=== PATIENT | male | born 1965 | race African-American/Black ===

== ENCOUNTER 2025-01-12 13:26 | Emergency (ER) | payer OTHER, SELFPAY ==
--- NOTE | ~2025-01-12 | XR_ITS ---
HISTORY: right lower leg pain, trip 1 week ago COMPARISON: None TECHNIQUE: 2 views of the tibia and fibula were performed FINDINGS: No acute or subacute fracture. Joint spaces are preserved and alignment is maintained. Soft tissues are unremarkable without foreign body or significant calcification. Age-appropriate mineralization. IMPRESSION: No acute fracture or dislocation Reviewed, dictated and finalized at location A.
--- NOTE | ~2025-01-12 | US_ITS ---
EXAMINATION: US venous doppler LE DATE: 01/12/2025 16:30 INDICATION: Pain in the bilateral lower extremities for weeks with swelling, right greater than lef t. DVT suspected clinically. TECHNIQUE: Grayscale ultrasound images without and with compression and Doppler ultrasound images of the bilateral lower extremity veins were obtained. COMPARISON: None. FINDINGS: The visualized portions of right common femoral vein, profunda (deep) femoral vein, femoral vein, pop liteal vein, peroneal veins, posterior tibial veins, and greater saphenous vein outflow are patent. The visualized portions of left common femoral vein, profunda femoral vein, femoral vein, popliteal v ein, peroneal veins, posterior tibial veins, and greater saphenous vein outflow are patent. Within the soft tissues of the popliteal fossa is a well-circumscribed, anechoic, avascular collectio n with increased through transmission, consistent with a cyst. This focus measures 3.3 x 1.2 x 3.4 cm , corresponding to the region of palpable concern and is most consistent with a right-sided Richards's c yst. IMPRESSION: No deep venous thrombosis. Right-sided Richards's cyst. Reviewed, dictated and finalized at location A.
--- NOTE | ~2025-01-12 | XR_ITS ---
HISTORY: previous paco surgery, increased pain, trip 1 week ago COMPARISON: None TECHNIQUE: 2 views of the left tibia and fibula were performed FINDINGS: No acute or subacute fracture. Fixation hardware within the tibia, consistent with patient's history. Bony remodeling of the mid shaft of the tibia as well as the mid shaft of the mid to distal fibula. No significant soft tissue swelling. Remaining soft tissues tissues are unremarkable without foreign body or significant calcification. Age-appropriate mineralization. IMPRESSION: No acute fracture or dislocation. Reviewed, dictated and finalized at location A.
--- OUTSIDE RECORDS SUMMARY | 2025-01-12 13:30 | XMS_ITS | CONTINUITY OF CARE DOCUMENT ---
Author Name crow maria Address Unknown Organization [facility] Address [address] [address] [place] [address] Phone [phone] Care Team Providers Care Elevator Constructor Helper Name Role Phone Aryan FLOREZ, Samm Unavailable [phone] KRYSTIN BEAR MD Unavailable KRYSTIN BEAR MD Unavailable [phone] INS[employer]ANCE PROVID[employer] Payer name Policy type / Coverage type [place] red green party ID [facility] [id number] Other [id number]
[2025-01-12 13:45] VITALS: BP 180/110; PULSE 70; RESP 16; TEMP 36.8; O2SAT 98
--- OUTSIDE RECORDS SUMMARY | 2025-01-12 14:31 | XMS_ITS | CONTINUITY OF CARE DOCUMENT ---
Author Name crow maria Address Unknown Organization [facility] Address [address] [place] [address] Phone [phone] Care Team Providers Care Telephone Station Installer Name Role Phone Aryan FLOREZ, Samm Unavailable KRYSTIN BEAR MD Unavailable KRYSTIN BEAR MD Unavailable [phone] [employer] Payer name Policy type / Coverage type [place] red green party ID [facility] [id number] Other [id number]
--- OUTSIDE RECORDS SUMMARY | 2025-01-12 14:32 | XMS_ITS | Data Portability ---
Author Organization [place] [facility] [employer], Main Office Address [address] [place] [address] Care Team Providers Care Environmental Associate Name Role Phone PAULINE QUICK Primary Care Provider [phone] PAULINE QUICK Referring Provider Assessment Encounter Date Assessment Date Assessment LastModified by Organization Details LastModified Time 08/04/2023 08/04/2023 HPI: 58-year-old male came in today for evaluation of his right ankle injury. He had injured it about 2 months ago. He was running in the backyard and thinks he may have twisted it. He continues to be sore and painful for him. Most pain is over the lateral aspect ankle. 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 He is constantly moving the right foot up and down when he is at work which causes him increased pain. He does wear safety boots which does give him good support and he is little bit more comfortable when he is wearing these when he is walking. However he is in regular shoes lateral ankle get sore and swollen by the end of the day. After his initial injury he never saw anyone up until this point. Physical exam: 58-year-old male he is 5 ft 10 to 252 lb BMI is 36.2. He has some mild swelling to the lateral ankle. He has [id number] tenderness over the distal tip of lateral malleolus as well as the ATFL. He has some mild swelling over the peroneal tendon. There is some minimal tenderness in this area. There is no snapping or dislocation and I can feel with rotation of the ankle. His Achilles tendon is intact and nontender. No swelling in the foot. He has pes planus with mild overpronation when he is standing. Impression: 58-year-old male has a lateral ankle sprain right ankle. Recommended getting him into an active ankle splint as well as some formal physical therapy. He does have relatively flat feet and might benefit him to get some custom orthotics may as well. Having the or pronation may be contributing to his ankle pain as well. I also discussed with him the vascular disease seen on the x-rays today. He does not smoke is no history of diabetes. He states his father did have significant cardiac problems. I recommend that he talk with his primary care doctor. 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 We will see him back in a month for re-evaluation of the ankle. 30 minutes was spent in treatment patient more than half of this in [id number] conversation [email or web address] Not available 08/04/2023 13:00:00 Plan of Treatment Reminders Order Date Submit Date Provider Last Modified By Organization Details Last Modified Time Details Appointments None recorde d. Lab None recorde d. Referral None recorde d. Procedures None recorde d. Surgeries None recorde d. Imaging XR, ankle 023 08/04/20 [email or web address] [facility], [address] [place] [address], [place], [address], 15:23:43 Medication Orders None recorde d. Patient TargetsNo targets recorded. Patient InstructionsNo instructions recorded. Reason for Referral None Reported. Results Created Date Observation Date Name Description Value Unit Range Abnormal Flag Note LastModifiedBy Organization Detail LastModifiedTime 08/04/20 XR, ankle No observ ation record ed. [email or web address] [facility] [address], [place], [address], 08/04/2023 12:51:50 Result Notes None recorded. Problems Name Problem SNOMED Code Status Onset Date Resolution Date Notes Provider Name and Address Organization Details Recorded Time Pain of right ankle joint 99600426927241233 Active 2022 DANE Bentley null, [facility] [employer] 11:55:47 Sprain of right ankle 60039778170205748 Active 2022 MARILYN Rodriguez, [employer] 13:09:18 Problem Notes None recorded. Procedures Surgical History None recorded. Imaging Results Imaging Date Name Status LastModified by Candi rahman Details LastModified Time 08/04/2023 XR, ankle completed [email or web address] [facility] [address] [facility] [facility], [place], [address], 08/04/2023 12:51:50 Procedure Notes None recorded. Medical Equipment None Reported. Allergies No known drug allergies Medications Name Sig Start Date Stop Date Status Note LastModified by Organization Details LastModified Time losartan 50 mg tablet TAKE ONE TABLET BY MOUTH EVERY DAY FOR BLOOD PRESSURE active Not Available Not Available No t Available Vitals Date Recorded Body height Body mass index (BMI) Body weight Provider Name and Address Organization Details Last Updated DateTime 08/04/2023 177.8 cm 36.2 kg/m2 862616.28 g DANE Bentley [employer] 08/04/2023 12:20:55 Social History Question Answer Notes LastModified by Luis arauz Details LastModified Time Tobacco Smoking Status Never Smoker DANE Bentley [employer] 08/04/2023 12:05:00 What Is Your Level Of Alcohol Consumption? Occasional [email or web address] Information not available 08/04/2023 Sex: Unknown Functional Status None recorded. Mental Status None recorded. Family History Relationship Description Onset Age of this Age Resolved Age Notes LastModified by Organization Details LastModified Time Mother Hypertensive disorder Not available 2022 12:04:52 Medical History No medical history recorded. Past Encounters Encounter ID Performer Location Encounter Start Date Encounter Closed Date Diagnosis/Indication Diagnosis SNOMED-CT Code Diagnosis ICD10 Code Diagnosis Note [id number] SHANNA Muñoz S_[facility] [address] [place] [address] 08/04/2023 11:43:39 08/04/2023 13:20:02 Pain of right ankle joint [id number] 4381918 M25.571 Health Concerns Section Related Observation LastModified by Organization Detai ls LastModified Time None Recorded Concern Status LastModified by Organization Details LastModified Time None Recorded Advance Directives Directive None Recorded Payers Encounter Date Sequence Insurance Name Policy Number Policy Urbina Covered Member ID Urbina Member ID Guarantor Name 08/04/2023 1 [facility] [id number] Hosea Rocha [id number] Hosea Rocha
--- OUTSIDE RECORDS SUMMARY | 2025-01-12 14:32 | XMS_ITS | Data Portability ---
Author Organization NATASHA Lorelei BULLOCK Address [address] [place] [address] Care Team Providers Care Rental Representative Name Role Phone SILVANA QUICK Primary Care Provider Assessment No assessment recorded. Plan of Treatment Reminders Order Date Submit Date Provider Last Modified By Organization Details Last Modified Time Details Appointments None recorded. Lab HbA1c (hemoglob in A1c), blood 2022 023 HOLLY DAY, [address] [place] [address], [address], [place], [address], 10:16:34 PSA, total, serum or plasma 2022 023 HOLLY DAY, [address] [place] [address], [address], [place], [address], 10:16:35 CMP, serum or plasma 2022 023 HOLLY DAY, [address] [place] [address], [address], [place], [address], 06:18:14 CBC 2022 023 HOLLY BERNSTEIN, [address] [place] [address], [address], [place], [address], 06:18:14 lipid panel, serum 2022 023 HOLLY DAY, [address] [place], [place] [address]ot Kd, [address], [place], [address], 3 06:18:13 TSH, ultra-sen sitive, serum 2022 023 HOLLY MATTHEW, [address], [address], [place], [address], 3 10:16:33 HIV 1+2 AB + HIV 1 p24 Ag, qualitati ve immunoass ay, serum 2019 020 HOLLY MATTHEW, [facility] [address], [address], [place], [address], 0 09:13:39 hepatitis C Ab, signal-to -cutoff, serum or plasma 2019 020 HOLLY MONZONISMAEL, [facility], [address], [place], [address], 0 09:13:40 CBC w/ auto diff 2019 020 HOLLY MATTHEW, [facility], [address], [place], [address], 0 09:13:34 urinalysi s, complete 2019 020 HOLLY MONZONISMAEL, [facility], [address], [place], [address], 0 09:13:36 CMP, serum or plasma 2019 020 HOLLY MONZONISMAEL, [facility] [address], [address], [place], [address], 0 09:13:35 lipid panel, serum 2019 020 HOLLY MONZONISMAEL, [facility] [address], [address], [place], [address], 0 09:13:37 HbA1c (hemoglob in A1c), blood 2019 020 [facility], [address] [facility], [address], [place], [address], 0 09:13:38 PSA, total, serum or plasma 2019 020 [facility], [address] [facility], [address], [place], [address], 0 09:13:38 Referral orthopedi c surgeon referral [address] [facility], [address] [facility], [place], [address], 3 13:00:58 ophthalmo logist referral 2022 023 ariana [facility], [address], [place], [address], 4 09:03:33 gastroent erologist referral 2022 023 ariana Hardy MD, [address] [place], [address], 4 09:03:32 Procedures None recorded. Surgeries None recorded. Imaging US, doppler, venous 2020 021 [facility] [address] [place], [address], 1 13:30:06 Medication Orders losartan 50 mg tablet 2022 023 DOU[facility], [address], [place], [id number], 3 15:21:47 losartan 50 mg tablet 2022 023 HOLLY [facility], [address] [place] [address], [id number], 3 16:27:36 Levitra 20 mg tablet 2019 020 [facility], [address] [place] [address], [id number], 3 10:19:56 losartan 100 mg-hydroc hlorothia zide 25 mg tablet 2019 020 [facility], [address] [place] [address], [id number], 3 10:19:54 amlodipin e 2.5 mg tablet 2019 020 [facility], [address] [place] [address], [id number], 3 10:19:42 Levitra 20 mg tablet 2019 020 [email or web address] Not available 3 10:19:56 losartan 100 mg-hydroc hlorothia zide 25 mg tablet 2019 020 [email or web address] Not available 3 10:19:54 Patient TargetsNo targets recorded. Patient Instructions Encounter Date Encounter Id Patient Instructions Last Modified By Organization Details Last Modified Time 06/03/2020 [id number] prediabetes: car e instructions oajao Not available 06/03/2020 09:45:40 snoring: care instructions oajao Not available 06/03/2020 10:33:07 high blood pressure: care instructions oajao Not available 06/03/2020 09:45:40 learning about high blood pressure oajao Not available 06/03/2020 09:45:40 Start Losartan/HCTZ, detailed instructions on the side effets Do not restart Lisinopril/HCTZ Labs Colonoscopy report from 2019 Low salt diet Follow up on Tuesday morning Avoid preservatives Monitor blood pressure closely Decrease alcohol use Do not restart Levitra until the BP is controlled, side effects of Levitra wee discussed oajao Not available 06/03/2020 13:17:44 Detailed visit oajao Not available 0 06/03/2020 10:32:53 06/06/2020 [id number] prediabetes: car e instructions oajao Not available 06/06/2020 10:43:30 high blood pressure: care instructions oajao Not available 06/06/2020 10:44:34 learning about high blood pressure oajao Not available 06/06/2020 10:44:34 Continue Losartan/HCTZ Start Amlodoipine 2.5 mg, side effects were discussed Follow up with Dr Quick Low cholesterol diet Low CHO diet BP check in 1 week he may proceed with the EMployment test oajao Not available 06/06/2020 11:12:55 He is at risk of DM He is also at high risk for a CV event, despite is normal CC from 2019. The benefits of going back on his statin were discussed, he however styates that his PCP discontinued it. He should folow up with Dr Quick and discuss this issue oajao Not available 06/06/2020 11:14:14 07/14/2023 [id number] prediabetes: car e instructions Not available 07/14/2023 11:32:33 leg pain: care instructions [email or web address] Not available 07/14/2023 11:32:32 learning about high blood sugar [email or web address] Not available 07/14/2023 11:32:33 learning about high blood pressure [email or web address] Not available 07/14/2023 11:32:32 body mass index: care instructions [email or web address] Not available 07/14/2023 11:32:32 learning about healthy weight Not available 07/14/2023 11:32:32 08/24/2023 [id number] high blood pressure: care instructions Not available 08/24/2023 16:59:31 learning about high blood pressure [email or web address] Not available 08/24/2023 16:59:31 Reason for Referral Shoder Filler Referral for History of polyp of colon Colon polyp 2017 Referring Physician: Silvana Quick, Internal Medicine, Encounter Date: 07/14/2023 Olericulturist Referral for Blurring of visual image Blurred vision Referring Physician: Silvana Quick, Internal Medicine, Encounter Date: 07/14/2023 Orthopedic Surgeon Referral for Pain in lower limb Persistent left leg pain Referring Physician: Slivana Quick, Internal Medicine, Encounter Date: 07/14/2023 Results Created Date Observation Date Name Description Value Unit Range Abnormal Flag Note LastModifiedBy Organization Detail LastModifiedTime 06/03/20 20 06/04/2020 CBC w/ auto diff WBC 5.9 x10e3 /uL 3.4-10 .8 Not Available [facility] ([facility]) [address] [facility], [place], [address], 06/04/2020 09:13:34 06/03/2006/04/2020 CBC w/ auto diff RBC 5.31 x10e6 /uL 4.14-5 .80 Not Available [facility] ([facility]) [address] [place], [address], 06/04/2020 09:13:34 06/03/2006/04/2020 CBC w/ auto diff hemoglobin 16.3 g/dL 13.0-1 7.7 Not Available [facility] ([facility]) [address] [place], [address], 06/04/2020 09:13:34 06/03/2006/04/2020 CBC w/ auto diff hematocrit 46.2 % 37.5-5 1.0 Not Available [facility] ([facility]) [address] [place], [address], 06/04/2020 09:13:34 06/03/2006/04/2020 CBC w/ auto diff MCV 87 fL 79-97 Not Available [facility] ([facility]) [address] [place], [address], 06/04/2020 09:13:34 06/03/2006/04/2020 CBC w/ auto diff MCH 30.7 pg 26.6-3 3.0 Not Available [facility] ([facility]) [address] [place], [address], 06/04/2020 09:13:34 06/03/2006/04/2020 CBC w/ auto diff MCHC 35.3 g/dL 31.5-3 5.7 Not Available [facility] ([facility]) [address] [facility], [place], [address], 06/04/2020 09:13:34 06/03/2006/04/2020 CBC w/ auto diff RDW 13.3 % 11.6-1 5.4 Not Available [facility] ([facility]) [address] [facility], [place], [address], 06/04/2020 09:13:34 06/03/2006/04/2020 CBC w/ auto diff platelets 248 x10e3 /uL 150-45 0 Not Available [facility] ([facility]) [address] [facility], [place], [address], 06/04/2020 09:13:34 06/03/2006/04/2020 CBC w/ auto diff neutrophils 35 % not estab. Not Available [facility] ([facility]) [address] [facility], [place], [address], 06/04/2020 09:13:34 06/03/2006/04/2020 CBC w/ auto diff lymphs 55 % not estab. Not Available [facility] ([facility]) [address] [facility], [place], [address], 06/04/2020 09:13:34 06/03/2006/04/2020 CBC w/ auto diff monocytes 7 % not estab. Not Available [facility] ([facility]) [address] [facility], [place], [address], 06/04/2020 09:13:34 06/03/2006/04/2020 CBC w/ auto diff eos 2 % not estab. Not Available [facility] ([facility]) [address] [facility], [place], [address], 06/04/2020 09:13:34 06/03/20 20 06/04/2020 CBC w/ auto diff basos 1 % not estab. Not Available [facility] ([facility]) [address] [facility], [place], [address], 06/04/2020 09:13:34 06/03/20 20 06/04/2020 CBC w/ auto diff immature cells PATIENT EDUCATOR Not Available [facility] ([facility]) [address] [place], [address], 06/04/2020 09:13:34 06/03/20 20 06/04/2020 CBC w/ auto diff neutrophils (absolute) 2.1 x10e3 /uL 1.4-7. 0 Not Available [facility] ([facility]) [address] [place], [address], 06/04/2020 09:13:34 06/03/20 20 06/04/2020 CBC w/ auto diff lymphs (absolute) 3.2 x10e3 /uL 0.7-3. 1 above high normal Not Available [facility] ([facility]) [address] [place], [address], 06/04/2020 09:13:34 06/03/20 20 06/04/2020 CBC w/ auto diff monocytes(ab solute) 0.4 x10e3 /uL 0.1-0. 9 Not Available [facility] ([facility]) [address] [place], [address], 06/04/2020 09:13:34 06/03/20 20 06/04/2020 CBC w/ auto diff eos (absolute) 0.1 x10e3 /uL 0.0-0. 4 Not Available [facility] ([facility]) [address] [place], [address], 06/04/2020 09:13:34 06/03/20 20 06/04/2020 CBC w/ auto diff baso (absolute) 0.0 x10e3 /uL 0.0-0. 2 Not Available [facility] ([facility]) [address] [facility] [place], [address], 06/04/2020 09:13:34 06/03/20 20 06/04/2020 CBC w/ auto diff immature granulocytes 0 % not estab. Not Available [facility] ([facility]) [address] [facility], [place], [address], 06/04/2020 09:13:34 06/03/2006/04/2020 CBC w/ auto diff immature grans (abs) 0.0 x10e3 /uL 0.0-0. 1 Not Available [facility] ([facility]) [address] [facility], [place], [address], 06/04/2020 09:13:34 06/03/2006/04/2020 CBC w/ auto diff NRBC PATIENT EDUCATOR Not Available [facility] ([facility]) [address] [place], [address], 06/04/2020 09:13:34 06/03/2006/04/2020 CBC w/ auto diff hematology comments: PATIENT EDUCATOR Not Available [facility] ([facility]) [address] [facility], [place], [address], 06/04/2020 09:13:34 06/03/2006/04/2020 CMP, serum or plasm a glucose 120 mg/dL 65-99 above high normal Not Available [facility] ([facility]) [address] [place], [address], 06/04/2020 09:13:35 06/03/2006/04/2020 CMP, serum or plasm a BUN 10 mg/dL 6-24 Not Available [facility] ([facility]) [address] [place], [address], 06/04/2020 09:13:35 06/03/2006/04/2020 CMP, serum or plasm a creatinine 1.15 mg/dL 0.76-1 .27 Not Available [facility] ([facility]) [address] [facility] [place], [address], 06/04/2020 09:13:35 06/03/2006/04/2020 CMP, serum or plasm a eGFR if nonafricn AM 73 mL/mi n/1.7 3 >59 Not Available [facility] ([facility]) [address] [facility] [place], [address], 06/04/2020 09:13:35 06/03/20 20 06/04/2020 CMP, serum or plasm a eGFR if africn AM 84 mL/mi n/1.7 3 >59 Not Available [facility] ([facility]) [address] [facility] [place], [address], 06/04/2020 09:13:35 06/03/2006/04/2020 CMP, serum or plasm a BUN/creatini ne ratio 9 9-20 Not Available [facility] ([facility]) [address] [facility] [place], [address], 06/04/2020 09:13:35 06/03/2006/04/2020 CMP, serum or plasm a sodium 138 mmol/ L 134-14 4 Not Available [facility] ([facility]) [address] [facility] [place], [address], 06/04/2020 09:13:35 06/03/2006/04/2020 CMP, serum or plasm a potassium 4.5 mmol/ L 3.5-5. 2 Not Available [facility] ([facility]) [address] [facility] [place], [address], 06/04/2020 09:13:35 06/03/2006/04/2020 CMP, serum or plasm a chloride 101 mmol/ L 96-106 Not Available [facility] ([facility]) [address] [facility] [place], [address], 06/04/2020 09:13:35 06/03/20 20 06/04/2020 CMP, serum or plasm a carbon dioxide, total 25 mmol/ L 20- Not Available [facility] ([facility]) [address] [place], [address], 06/04/2020 09:13:35 06/03/20 20 06/04/2020 CMP, serum or plasm a calcium 9.7 mg/dL 8.7-10 .2 Not Available [facility] ([facility]) [address] [facility], [place], [address], 06/04/2020 09:13:35 06/03/2006/04/2020 CMP, serum or plasm a protein, total 7.3 g/dL 6.0-8. 5 Not Available [facility] ([facility]) [address] [facility], [place], [address], 06/04/2020 09:13:35 06/03/20 20 06/04/2020 CMP, serum or plasm a albumin 4.1 g/dL 3.8-4. 9 Not Available [facility] ([facility]) [address] [place], [address], 06/04/2020 09:13:35 06/03/2006/04/2020 CMP, serum or plasm a globulin, total 3.2 g/dL 1.5-4. 5 Not Available [facility] ([facility]) [address] [place], [address], 06/04/2020 09:13:35 06/03/2006/04/2020 CMP, serum or plasm a A/G ratio 1.3 1.2-2. 2 Not Available [facility] ([facility]) [address] [place], [address], 06/04/2020 09:13:35 06/03/2006/04/2020 CMP, serum or plasm a bilirubin, total 0.4 mg/dL 0.0-1. 2 Not Available [facility] ([facility]) [address] [facility], [place], [address], 06/04/2020 09:13:35 06/03/2006/04/2020 CMP, serum or plasm a alkaline phosphatase 191 IU/L 39-117 above high normal Not Available [facility] ([facility]) [address] [facility], [place], [address], 06/04/2020 09:13:35 06/03/20 20 06/04/2020 CMP, serum or plasm a AST (SGOT) 34 IU/L 0-40 Not Available [facility] ([facility]) [address] [facility], [place], [address], 06/04/2020 09:13:35 06/03/2006/04/2020 CMP, serum or plasm a ALT (SGPT) 26 IU/L 0-44 Not Available [facility] ([facility]) [address] [facility], [place], [address], 06/04/2020 09:13:35 06/03/2006/04/2020 urina lysis , compl ete specific gravity 1.010 1.005- 1.030 Not Available [facility] ([facility]) [address] [facility], [place], [address], 06/04/2020 09:13:36 06/03/2006/04/2020 urina lysis , compl ete pH 6.5 5.0-7. 5 Not Available [facility] ([facility]) [address] [facility] [place], [address], 06/04/2020 09:13:36 06/03/2006/04/2020 urina lysis , compl ete urine-color YELLOW yellow Not Available [facility] ([facility]) [address] [facility] [place], [address], 06/04/2020 09:13:36 06/03/2006/04/2020 urina lysis , compl ete appearance CLEAR clear Not Available [facility] ([facility]) [address] [facility], [place], [address], 06/04/2020 09:13:36 06/03/20 20 06/04/2020 urina lysis , compl ete WBC esterase NEGATI VE negati ve Not Available [facility] ([facility]) [address] [facility], [place], [address], 06/04/2020 09:13:36 06/03/20 20 06/04/2020 urina lysis , compl ete protein NEGATI VE negati ve/tra ce Not Available [facility] ([facility]) [address] [place], [address], 06/04/2020 09:13:36 06/03/2006/04/2020 urina lysis , compl ete glucose NEGATI VE negati ve Not Available [facility] ([facility]) [address] [place], [address], 06/04/2020 09:13:36 06/03/20 20 06/04/2020 urina lysis , compl ete ketones NEGATI VE negati ve Not Available [facility] ([facility]) [address] [facility], [place], [address], 06/04/2020 09:13:36 06/03/2006/04/2020 urina lysis , compl ete occult blood NEGATI VE negati ve Not Available [facility] ([facility]) [address] [place], [address], 06/04/2020 09:13:36 06/03/2006/04/2020 urina lysis , compl ete bilirubin NEGATI VE negati ve Not Available [facility] ([facility]) [address] [place], [address], 06/04/2020 09:13:36 06/03/20 20 06/04/2020 urina lysis , compl ete urobilinogen ,semi-qn 0.2 mg/dL 0.2-1. 0 Not Available [facility] ([facility]) [address] [place], [address], 06/04/2020 09:13:36 06/03/20 20 06/04/2020 urina lysis , compl ete nitrite, urine NEGATI VE negati ve Not Available [facility] ([facility]) [address] [place], [address], 06/04/2020 09:13:36 06/03/2006/04/2020 urina lysis , compl ete microscopic examination COMMEN T Micro scopi c not indic ated and not perfo rmed. Not Available [facility] ([facility]) [address] [facility], [place], [address], 06/04/2020 09:13:36 06/03/2006/04/2020 lipid panel , serum cholesterol, total 200 mg/dL 100-19 9 above high normal Not Available [facility] ([facility]) [address] [place], [address], 06/04/2020 09:13:37 06/03/2006/04/2020 lipid panel , serum triglyceride s 96 mg/dL 0-149 Not Available [facility] ([facility]) [address] [place], [address], 06/04/2020 09:13:37 06/03/2006/04/2020 lipid panel , serum HDL cholesterol 51 mg/dL >39 Not Available [facility] ([facility]) [address] [place], [address], 06/04/2020 09:13:37 06/03/2006/04/2020 lipid panel , serum VLDL cholesterol cong 19 mg/dL 5-40 Not Available [facility] ([facility]) [address] [place], [address], 06/04/2020 09:13:37 06/03/20 20 06/04/2020 lipid panel , serum LDL cholesterol calc 130 mg/dL 0-99 above high normal Not Available [facility] ([facility]) [address] [facility], [place], [address], 06/04/2020 09:13:37 06/03/20 20 06/04/2020 lipid panel , serum comment: PATIENT EDUCATOR Not Available [facility] ([facility]) [address] [facility], [place], [address], 06/04/2020 09:13:37 06/03/20 20 06/04/2020 lipid panel , serum LDL/HDL ratio 2.5 ratio 0.0-3. 6 LDL/H DL Ratio Men Women 1/2 Avg.R isk 1.0 1.5 Avg.R isk 3.6 3.2 2X Avg.R isk 6.2 5.0 3X Avg.R isk 8.0 6.1 Not Available [facility] ([facility]) [address] [facility], [place], [address], 06/04/2020 09:13:37 06/03/2006/04/2020 HbA1c (hemo globi n A1c), blood hemoglobin A1C 6.0 % 4.8-5. 6 above high normal Predi abete s: 5.7 - 6.4 Diabe otilia: >6.4 Glyce sesar contr ol for adult s with diabe otilia: <7.0 Not Available [facility] ([facility]) [address] [facility], [place], [address], 06/04/2020 09:13:38 06/03/2006/04/2020 PSA, total , serum or plasm a prostate specific Ag, serum 3.0 NG/mL 0.0-4. 0 Jalen ECLIA metho dolog y. Accor shirley to the [employer]i can [employer] iatio n, Serum PSA shoul d decre ase and remai n at undet ectab le level s after radic al prost atect patience. The AUA defin es bioch emica l recur rence as an initi al PSA value 0.2 ng/mL or great er follo wed by a subse quent confi rmato ry PSA value 0.2 ng/mL or great er. Value s obtai santos with diffe rent assay metho ds or kits canno t be used inter ghosh eamateusy . Resul ts canno t be inter prete d as absol sherry evide nce of the prese nce or absen ce of [facility] nielsen se. Not Available [facility] ([facility]) [address] [facility], [place], [address], 06/04/2020 09:13:38 06/03/2006/04/2020 HIV 1+2 AB + HIV 1 p24 Ag, quali tativ e immun oassa y, serum HIV screen 4TH generation wrfx NON REACTI VE non reacti ve Not Available [facility] ([facility]) [address] [facility], [place], [address], 06/04/2020 09:13:39 06/03/20 20 06/04/2020 hepat itis C Ab, signa l-to- cutof f, serum or plasm a HCV Ab 0.1 s/co_ ratio 0.0-0. 9 Not Available [facility] ([facility]) [address] [facility], [place], [address], 06/04/2020 09:13:40 06/03/2006/04/2020 hepat itis C Ab, signa l-to- cutof f, serum or plasm a comment: COMMEN T Non react juliana HCV antib leena scree n is consi stent with no HCV infec tion, unles s recen t infec tion is suspe cted or other evide nce exist s to indic ate HCV infec tion. Not Available [facility] ([facility]) [address] [facility], [place], [address], 06/04/2020 09:13:40 12/19/1912/19/2020 CBC WBC 5.9 x10e3 /uL 3.4-10 .8 Not Available [facility] ([facility]) [address] [facility], [place], [address], 12/19/2020 09:16:59 12/19/19 21 12/19/2020 CBC RBC 4.89 x10e6 /uL 4.14-5 .80 Not Available [facility] ([facility]) [address] [facility], [place], [address], 12/19/2020 09:16:59 12/19/19 21 12/19/2020 CBC hemoglobin 15.4 g/dL 13.0-1 7.7 Not Available [facility] ([facility]) [address] [facility] [place], [address], 12/19/2020 09:16:59 12/19/19 21 12/19/2020 CBC hematocrit 43.5 % 37.5-5 1.0 Not Available [facility] ([facility]) [address] [place], [address], 12/19/2020 09:16:59 12/19/19 21 12/19/2020 CBC MCV 89 fL 79-97 Not Available [facility] ([facility]) [address] [place], [address], 12/19/2020 09:16:59 12/19/19 21 12/19/2020 CBC MCH 31.5 pg 26.6-3 3.0 Not Available [facility] ([facility]) [address] [place], [address], 12/19/2020 09:16:59 12/19/19 21 12/19/2020 CBC MCHC 35.4 g/dL 31.5-3 5.7 Not Available [facility] ([facility]) [address] [place], [address], 12/19/2020 09:16:59 12/19/19 21 12/19/2020 CBC RDW 13.1 % 11.6-1 5.4 Not Available [facility] ([facility]) [address] [facility], [place], [address], 12/19/2020 09:16:59 12/19/1912/19/2020 CBC platelets 225 x10e3 /uL 150-45 0 Not Available [facility] ([facility]) [address] [facility], [place], [address], 12/19/2020 09:16:59 12/19/19 21 12/19/2020 CBC NRBC PATIENT EDUCATOR Not Available [facility] ([facility]) [address] [facility], [place], [address], 12/19/2020 09:16:59 12/19/1912/19/2020 uric acid, serum or plasm a uric acid 6.8 mg/dL 3.8-8. 4 Thera peharshadi c targe t for gout patie nts: <6.0 Not Available [facility] ([facility]) [address] [facility], [place], [address], 12/19/2020 09:17:01 12/19/1912/19/2020 eryth rocyt e sedim entat ion rate by zaire skinnero d sedimentatio n rate-westerg heath 13 mm/HR 0-30 Not Available [facility] ([facility]) [address] [facility], [place], [address], 12/19/2020 09:17:02 08/03/20 23 08/03/2023 LIPID PANEL cholesterol, total 187 mg/dL 100-19 9 Not Available [facility] [address] [place], [address], 08/04/2023 06:18:13 08/03/20 23 08/03/2023 LIPID PANEL triglyceride s 96 mg/dL 0-149 Not Available [facility] Department [address] [place], [address], 08/04/2023 06:18:13 08/03/20 23 08/03/2023 LIPID PANEL HDL cholesterol 51 mg/dL 40-999 Not Available [facility] Department [address] [place], [address], 08/04/2023 06:18:13 08/03/20 23 08/03/2023 LIPID PANEL VLDL cholesterol cong 19 mg/dL 5-40 Not Available [facility] [address] [place], [address], 08/04/2023 06:18:13 08/03/2008/03/2023 LIPID PANEL LDL chol calc (nih) 130 mg/dL 0-99 above high normal Not Available [facility] [address] [place], [address], 08/04/2023 06:18:13 08/03/2008/03/2023 COMP. METAB OLIC PANEL (14) glucose 125 mg/dL 70-99 above high normal Not Available [facility] [address] [place], [address], 08/04/2023 06:18:14 08/03/20 23 08/03/2023 COMP. METAB OLIC PANEL (14) BUN 10 mg/dL 6-24 Not Available [facility] [address] [place], [address], 08/04/2023 06:18:14 08/03/20 23 08/03/2023 COMP. METAB OLIC PANEL (14) creatinine 1.15 mg/dL 0.76-1 .27 Not Available [facility] [address] [place], [address], 08/04/2023 06:18:14 08/03/20 23 08/03/2023 COMP. METAB OLIC PANEL (14) eGFR 75 >=60 Units for eGFR value s are mL/mi n/1.7 3 The eGFR Calcu latio n has not been valid ated for patie nts under the age of 18. If test resul ts are displ ayed for a patie nt under the age of 18, disre marya that value . Not Available [facility] [address] [place] [address], [address], 08/04/2023 06:18:14 08/03/2008/03/2023 COMP. METAB OLIC PANEL (14) BUN/creatini ne ratio 9 9-20 Not Available [facility] [address] [place] [address], [address], 08/04/2023 06:18:14 08/03/2008/03/2023 COMP. METAB OLIC PANEL (14) sodium 135 mmol/ L 134-14 4 Not Available [facility] [address] [place] [address], [address], 08/04/2023 06:18:14 08/03/2008/03/2023 COMP. METAB OLIC PANEL (14) potassium 4.6 mmol/ L 3.5-5. 2 Not Available [facility] [address] [place], [address], 08/04/2023 06:18:14 08/03/2008/03/2023 COMP. METAB OLIC PANEL (14) chloride 101 mmol/ L 96-106 Not Available [facility] [address] [place], [address], 08/04/2023 06:18:14 08/03/2008/03/2023 COMP. METAB OLIC PANEL (14) carbon dioxide, total 23 mmol/ L 20-29 Not Available [facility] [address] [place], [address], 08/04/2023 06:18:14 08/03/2008/03/2023 COMP. METAB OLIC PANEL (14) calcium 9.7 mg/dL 8.7-10 .2 Not Available [facility] [address] [place] [address], [address], 08/04/2023 06:18:14 08/03/20 23 08/03/2023 COMP. METAB OLIC PANEL (14) protein, total 6.8 g/dL 6.0-8. 5 Not Available [facility] [address] [place], [address], 08/04/2023 06:18:14 08/03/2008/03/2023 COMP. METAB OLIC PANEL (14) albumin 4.1 g/dL 3.8-4. 9 Not Available [facility] [address] [place], [address], 08/04/2023 06:18:14 08/03/2008/03/2023 COMP. METAB OLIC PANEL (14) globulin, total 2.7 g/dL 1.5-4. 5 Not Available [facility] [address] [place], [address], 08/04/2023 06:18:14 08/03/2008/03/2023 COMP. METAB OLIC PANEL (14) A/G ratio 2.0 1.2-2. 2 Not Available [facility] [address] [place], [address], 08/04/2023 06:18:14 08/03/2008/03/2023 COMP. METAB OLIC PANEL (14) bilirubin, total 0.5 mg/dL 0.0-1. 2 Not Available [facility] [address] [place], [address], 08/04/2023 06:18:14 08/03/2008/03/2023 COMP. METAB OLIC PANEL (14) alkaline phosphatase 246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
[2025-01-12 15:38] VITALS: BP 182/128; PULSE 67; RESP 16; O2SAT 100
[2025-01-12] MEDS: KETOROLAC (*BKC) 60 MG/2 ML VIAL IM (15:41)
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
[2025-01-12 17:07] VITALS: BP 180/125; PULSE 65; RESP 15; TEMP 36.6; O2SAT 100
== END 2025-01-12 17:10 | disposition home or self-care (01) ==
PROVIDERS: Emergency Provider Physician Assistant
DX: M79.605 Pain in left leg (principal); M79.604 Pain in right leg; G89.29 Other chronic pain; M71.21 Synovial cyst of popliteal space [Baker], right knee; R03.0 Elevated blood-pressure reading, without diagnosis of hypertension
CPT/HCPCS: 73590; 93970; 96372; 99284; J1885